=== PATIENT | male | born 1990 | race Caucasian/White ===

== ENCOUNTER 2018-01-10 13:39 | Emergency (ER) | payer MEDICAID ==
[~2018-01-10] VITALS: Ht 182.9 cm; Wt 113.0 kg
[2018-01-10] MEDS ORDERED: AZITHROMYCIN 500 MG TABLET PO ONE (14:30)
[2018-01-10] MEDS ORDERED: CEFTRIAXONE 250 MG IM ONE (14:30)
[2018-01-10] MEDS ORDERED: AZITHROMYCIN 250 MG TABLET ONE (14:47)
[2018-01-10] MEDS ORDERED: LIDOCAINE-MPF 1%, 2ML ONE (14:47)
[2018-01-10] MEDS ORDERED: CEFTRIAXONE 250 MG ONE (14:47)
[2018-01-10 15:07] VITALS: BP 150/74
== END 2018-01-10 15:40 | disposition home or self-care (01) ==
LOC: ED 15:00
DX: A56.8 Sexually transmitted chlamydial infection of other sites (principal); A54.9 Gonococcal infection, unspecified; F17.200 Nicotine dependence, unspecified, uncomplicated
CPT/HCPCS: 87491; 87591; 96372; 99284; J0696

== ENCOUNTER 2019-09-16 06:44 | Emergency (ER) | payer MEDICAID ==
[~2019-09-16] VITALS: Ht 182.9 cm; Wt 126.0 kg
--- NOTE | 2019-09-16 07:12 | NUR ---
STD X2 WEEKS. UNRESOLVED PAIN. Pt to room after attempting to collect a urine. Assume care at this time.
[2019-09-16] MEDS ORDERED: CEFTRIAXONE 1,000 MG ONE (07:21)
[2019-09-16] MEDS ORDERED: AZITHROMYCIN 250 MG TABLET ONE (07:21)
[2019-09-16] MEDS ORDERED: CEFTRIAXONE 250 MG ONE (07:26)
[2019-09-16] MEDS ORDERED: AZITHROMYCIN 500 MG TABLET PO ONE (07:30)
[2019-09-16] MEDS ORDERED: CEFTRIAXONE 250 MG IM ONE (07:30)
[2019-09-16 08:24] VITALS: BP 176/89
[2019-09-16 09:06] LABS: MICROSCOPIC INDICATED
== END 2019-09-16 08:26 | disposition home or self-care (01) ==
LOC: ED 07:50
DX: A56.01 Chlamydial cystitis and urethritis (principal); A59.03 Trichomonal cystitis and urethritis; Z20.2 Contact with and (suspected) exposure to infections with a predominantly sexual mode of transmission
CPT/HCPCS: 81001; 87086; 87491; 87591; 96372; 99283; J0696